=== PATIENT | male | born 1975 | race Caucasian/White ===

== ENCOUNTER 2021-11-30 13:26 | Emergency (ER) | payer BC, OTHER, SELFPAY ==
--- NOTE | ~2021-11-30 | XR_ITS ---
EXAM: XR foot LT 2V DATE: 11/30/2021 14:02 HISTORY: eval for retained fb, LACERATION TO MEDIAL PLANTAR LT FOOT . COMPARISON: None available. FINDINGS: Normal mineralization. No fracture or dislocation. No lytic or blastic lesion. Joint space s are maintained. No erosion or periosteal change. Medial soft tissue laceration. No radiopaque forei gn body. IMPRESSION: No acute osseous finding. No radiopaque foreign body. Reviewed, dictated and finalized at location [facility].
[2021-11-30 13:37] VITALS: BP 124/89; PULSE 97; RESP 18; TEMP 36.9; O2SAT 99
[2021-11-30] MEDS: TETANUS,DIPHTHERIA,AC PERTUSSIS ADULT (0.5 ML) BOOSTRIX IM (14:13)
[2021-11-30 14:16] VITALS: BP 140/91; PULSE 92; RESP 18; O2SAT 97
[2021-11-30] MEDS: ONDANSETRON HCL ODT 4 MG TABLET PO (14:43)
--- NOTE | 2021-11-30 14:47 | ED.LOWEXIN ---
HPI - Extremity Injury (Lower) General Chief Complaint: Extremity Injury, Lower <Christian Bocanegra MD - Last Filed: 11/30/21 15:21> Stated Complaint: left foot injury <Christian Bocanegra MD - Last Filed: 11/30/21 15:21> Time Seen by Provider: 11/30/21 13:33 <Christian Bocanegra MD - Last Filed: 11/30/21 15:21> Source: patient <Christian Bocanegra MD - Last Filed: 11/30/21 15:21> History of Present Illness HPI Narrative: Patient presents with left foot injury. Patient reports he was at [employer] auger shovel he is wearing sandals was pushing down on the shovel with his foot when his foot slid off and the shovel cut his foot. Reports numbness around his injury site. He saw stuff coming out of his foot he was concerned so he came to ER for evaluation. He is unsure when his last tetanus shot was. He put gauze on his wound and wrapped it up and came to the ER <Christian Bocanegra MD - Last Filed: 11/30/21 15:21> Related Data Allergies/Adverse Reactions: Allergies Allergy/AdvReac Type Severity Reaction Status Date / Time No Known Allergies Allergy Verified 11/30/21 13:41 <Christian Bocanegra MD - Last Filed: 11/30/21 15:21> Review of Systems Review of Systems: CONSTITUTIONAL: Denies fever, chills, or sweats. EYES: Denies visual changes, redness, or discharge. CARDIOVASCULAR: Denies chest pain, palpitations, or edema. RESPIRATORY: Denies cough or dyspnea. GASTROINTESTINAL: Denies abdominal pain, nausea, vomiting, or diarrhea. SKIN: Denies rash or itching. MUSCULOSKELETAL: Denies back pain, joint pain, or myalgia. NEUROLOGIC: Denies headache, numbness, dizziness, or weakness. <Christian Bocanegra MD - Last Filed: 11/30/21 15:21> PMFSH Past Medical History Medical History: Medical History (Updated 11/30/21 @ 14:51 by Christian Bocanegra MD) Patient denies significant medical history <Christian Bocanegra MD - Last Filed: 11/30/21 15:21> Social History Social History: Social History (Updated 11/30/21 @ 14:49 by Christian Bocanegra MD) Alcohol intake: current Substance use: current Substance use type: marijuana <Christian Bocanegra MD - Last Filed: 11/30/21 15:21> Exam Narrative: GENERAL: Well-appearing, well-nourished, and in no acute distress. HEAD: Normocephalic, atraumatic. EYES: PERRLA and EOMI. ENT: Nares clear, no rhinorrhea or epistaxis. Mucous membranes moist. NECK: Supple. No masses. No JVD EXTREMITIES: Normal range of motion. There is a 2-1/2 cm linear laceration on the medial distal aspect of the left foot injury is limited to the subcutaneous tissue subcutaneous fat was visualized no deep structures visualized such as tenderness major neurovascular bundles or bony structures no retained foreign bodies appreciated. SKIN: Warm, dry, no rash. NEURO: No focal deficits. Alert and oriented x3. PSYCH: Normal mood and affect. <Christian Bocanegra MD - Last Filed: 11/30/21 15:21> Course Reevaluation(s) Reevaluation #1: Results and plan reviewed with patient. Patient is comfortable outpatient plan. Patient is currently being sutured <Christian Bocanegra MD - Last Filed: 11/30/21 15:21> Date: 11/30/21 <Christian Bocanegra MD - Last Filed: 11/30/21 15:21> Time: 14:50 <Christian Bocanegra MD - Last Filed: 11/30/21 15:21> Vital Signs Vital signs: Vital Signs Temperature 36.9 C 11/30/21 13:37 Pulse Rate 97 11/30/21 13:37 Respiratory Rate 18 11/30/21 13:37 Blood Pressure 124/89 11/30/21 13:37 Pulse Oximetry 99 11/30/21 13:37 Oxygen Delivery Room Air 11/30/21 13:37 Temperature 36.9 C 11/30/21 13:37 Pulse Rate 72 11/30/21 15:15 Respiratory Rate 18 11/30/21 15:15 Blood Pressure 112/77 11/30/21 15:15 Pulse Oximetry 99 11/30/21 15:15 Oxygen Delivery Room Air 11/30/21 13:37 <Christian Bocanegra MD - Last Filed: 11/30/21 15:21> Vital Signs Temperature 36.9 C 11/30/21 13:37 Pulse Rate 97 11/30/21
[2021-11-30 15:15] VITALS: BP 112/77; PULSE 72; RESP 18; O2SAT 99
== END 2021-11-30 15:18 | disposition home or self-care (01) ==
PROVIDERS: Emergency Provider Emergency Medicine
DX: S91.312A Laceration without foreign body, left foot, initial encounter (principal); Z23 Encounter for immunization; W27.8XXA Contact with other nonpowered hand tool, initial encounter
CPT/HCPCS: 12001; 73620; 90471; 90715; 99283; A9270